=== PATIENT | female | born 1990 | race Caucasian/White ===

== ENCOUNTER 2017-07-02 23:38 | Emergency (ER) | payer SELFPAY ==
[2017-07-03] MEDS ORDERED: LOPERAMIDE HCL 2 MG CAPSULE ONE (01:28)
[2017-07-03] MEDS ORDERED: NA CHLORIDE 0.9% 1,000 ML ONE (01:29)
[2017-07-03] MEDS ORDERED: DICYCLOMINE HCL 10 MG CAP ONE (01:29)
[2017-07-03 02:08] LABS: Absolute Lymphocytes (CBC) 3.3 K/uL (0.7-4.9); Absolute Monocytes 0.9 K/uL (0.1-1.3); Absolute Neutrophil 9.3 K/uL (1.8-8.0); Basophils % 0.4 % (0-1.3); Eosinophils % 1.2 % (0-4.4); Hematocrit 40.7 % (36.0-45.0); Lymphocytes % 24.2 % (15.3-44.8); MCH 28.7 pg (27.0-35.0); MCV 88.1 fL (80-100); MPV 9.5 fL (7.6-11.3); Monocytes % 6.7 % (3.3-12.3); RBC Red Blood Cell Count 4.62 M/uL (3.86-4.86)
[2017-07-03 02:11] LABS: Bicarbonate 27 mEq/L (21-31); Glucose Level 112 mg/dL (65-120); Lipase 31 U/L (22-51); Potassium 3.8 mEq/L (3.6-5.0); Sodium Level 137 mEq/L (135-145)
[2017-07-03 02:18] LABS: ALT/SGPT 67 IU/L (10-60); AST/SGOT 48 IU/L (10-42); Albumin 4.1 g/dL (3.2-5.5); Alkaline Phosphatase 50 IU/L (42-121); Amylase Level 39 U/L (28-100); BUN Blood Urea Nitrogen 14 mg/dL (6-20); Bilirubin Direct 0.1 mg/dL (0-0.2); Bilirubin Total 0.4 mg/dL (0.3-1.2); Protein, Total 7.6 g/dL (6.0-8.3)
[2017-07-03 02:18] LABS: Urine Blood TRACE (NEG); Urine Glucose NEGATIVE (NEG); Urine Protein NEGATIVE (NEG); Urine Specific Gravity 1.025 (1.005-1.030); Urine pH 6.5 (5.0-7.0)
[2017-07-03 02:19] LABS: Urine Bacteria <20 /HPF (<20); Urine Culture Reflex Order NOT NEEDED; Urine RBC <5 /HPF (NONE SEEN)
--- NOTE | 2017-07-03 03:08 | ER ---
Nurse's Notes [facility] Name: Cande Morgan Age: 27 yrs Sex: Female : 1990 Arrival Date: 07/02/2017 Time: 23:44 Bed 5 Private MD: Diagnosis: Diarrhea, unspecified;hemocult positive gastrointestinal bleeding Presentation: 07/02 23:49 Presenting complaint: Patient states: lower abd pain and diarrhea x 1 hr. Transition of aa1 care: patient was not received from another setting of care. Onset of symptoms was July 02, 2017. Initial Sepsis Screen: Does the patient meet any 2 criteria? No. Patient's initial sepsis screen is negative. Does the patient have a suspected source of infection? Yes: Acute abdominal pain. Care prior to arrival: None. 23:49 Method Of Arrival: Ambulatory aa1 23:49 Acuity: GERARDO 3 aa1 Triage Assessment: 23:49 General: Appears in no apparent distress. comfortable, Behavior is calm, cooperative, aa1 appropriate for age. 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 - Social history:: Smoking status: Patient/guardian denies using tobacco. Screenin/14 03:18 Abuse screen: Denies threats or abuse. Denies injuries from another. Nutritional lp1 screening: No deficits noted. Tuberculosis screening: No symptoms or risk factors identified. Fall Risk None identified. Assessment: 01:43 General: Appears in no apparent distress. comfortable, Behavior is calm, cooperative, lp1 appropriate for age. Pain: Complains of pain in right lower quadrant and left lower quadrant Pain currently is 6 out of 10 on a pain scale. Quality of pain is described as aching. Neuro: Level of Consciousness is awake, alert, obeys commands. Cardiovascular: Patient's skin is warm and dry. Respiratory: Respiratory effort is even, unlabored, Respiratory pattern is regular, symmetrical. GI: Abdomen is non-distended, Bowel sounds present X 4 quads. Abdomen is tender to palpation in right lower quadrant and left lower quadrant. : No signs and/or symptoms were reported regarding the genitourinary system. EENT: No signs and/or symptoms were reported regarding the EENT system. Derm: Skin is pink, warm \T\ dry. Musculoskeletal: Circulation, motion, and sensation intact. 02:45 Reassessment: Patient appears in no apparent distress at this time. Patient and/or lp1 family updated on plan of care and expected duration. Pain level reassessed. Patient is alert, oriented x 3, equal unlabored respirations, skin warm/dry/pink. Vital Signs: 07/02 23:49 BP 159 / 98; Pulse 84; Resp 18; Temp 97.0; Pulse Ox 100% on R/A; Weight 94.35 kg; aa1 Height 5 ft. 1 in. (154.94 cm); Pain 4/10; 07/03 01:42 BP 116 / 79; Pulse 65; Resp 16; Pulse Ox 98% on R/A; lp1 02:45 BP 104 / 54; Pulse 60; Resp 16; Pulse Ox 98% on R/A; lp1 07/02 23:49 Body Mass Index 39.30 (94.35 kg, 154.94 cm) aa1 ED Course: 07/02 23:44 Patient arrived in ED. ds1 23:49 Triage completed. aa1 23:49 Arm band placed on left wrist. Patient placed in waiting room, Patient notified of wait aa1 time. 07/03 01:04 Halina Pacheco, LEELEE is Primary Nurse. lp1 01:07 Fernie Burgos MD is Attending Physician. tw4 01:20 Inserted saline lock: 20 gauge in right antecubital area, using aseptic technique. lp1 Blood collected. 01:20 Urine collected: clean catch specimen, clear. lp1 01:23 Geri Clark FNP-C is PHCP. snw 01:45 Patient has correct armband on for positive identification. Placed in gown. Pulse ox lp1 on. NIBP on. 03:19 No provider procedures requiring assistance completed. IV discontinued, No lp1 redness/swelling at site. Pressure dressing applied. Administered Medications: 01:38 Drug: NS 0.9% 1000 ml Route: IV; Rate: 1 bolus; Site: right antecubital; lp1 03:20 Follow up: IV Status: Completed infusion lp1 01:38 Drug: Imodium A-D 4 mg Route: PO; lp1 03:21 Follow up: Response: No adverse reaction lp1 01:39 Drug: Bentyl 20 mg Route: PO; lp1 03:21 Follow up: Response: No adverse reaction lp1 Point of Care Testing: Guaiac: 01:42 Stool Guaiac: Positive; Stool Hemoccult Control: Pass; lp1 Outcome: 03:08 Discharge ordered by MD. martinez 03:19 Discharged to home ambulatory. lp1 03:19 Condition: good 03:19 Discharge instructions given to patient, Instructed on discharge instructions, follow up and referral plans. medication usage, Demonstrated understanding of instructions, follow-up care, medications, Prescriptions given X 1. 03:20 Patient left the ED. lp1 Signatures: Luz Maria Lagunas RN RN aa1 Geri Clark, GRID MAKER-C GRID MAKER-Csnw Sandra Guzman ds1 Halina Pacheco RN RN lp1 Fernie Burgos MD MD tw4
--- NOTE | 2017-07-03 03:09 | EDPHYS ---
Physician Documentation [facility] Name: Cande Morgan Age: 27 yrs Sex: Female : 1990 Arrival Date: 07/02/2017 Time: 23:44 Bed 5 Private MD: ED Physician Fernie Burgos HPI: 07/03 01:54 This 27 yrs old Female presents to ER via Ambulatory with complaints of snw Diarrhea, Abdominal Pain. 01:54 The patient presents to the emergency department with diarrhea, abdominal pain. Onset: snw The symptoms/episode began/occurred suddenly, today. Possible causes: unknown. The symptoms are aggravated by nothing. Associated signs and symptoms: Pertinent positives: abdominal pain, GI bleeding. Severity of symptoms: At their worst the symptoms were moderate. The patient has not experienced similar symptoms in the past. The patient has not recently seen a physician. no meds, no allergies. 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 - Social history:: Smoking status: Patient/guardian denies using tobacco. ROS: 07/03 01:54 Constitutional: Negative for fever, chills, and weight loss, Eyes: Negative for injury, snw pain, redness, and discharge, ENT: Negative for injury, pain, and discharge, Neck: Negative for injury, pain, and swelling, Cardiovascular: Negative for chest pain, palpitations, and edema, Respiratory: Negative for shortness of breath, cough, wheezing, and pleuritic chest pain, Back: Negative for injury and pain, : Negative for injury, bleeding, discharge, and swelling, MS/Extremity: Negative for injury and deformity, Skin: Negative for injury, rash, and discoloration, Neuro: Negative for headache, weakness, numbness, tingling, and seizure. Abdomen/GI: Positive for abdominal pain, nausea, black/tarry stool, of the right lower quadrant and left lower quadrant. Exam: 01:53 Head/Face: Normocephalic, atraumatic. Eyes: Pupils equal round and reactive to light, snw extra-ocular motions intact. Lids and lashes normal. Conjunctiva and sclera are non-icteric and not injected. Cornea within normal limits. Periorbital areas with no swelling, redness, or edema. ENT: Nares patent. No nasal discharge, no septal abnormalities noted. Tympanic membranes are normal and external auditory canals are clear. Oropharynx with no redness, swelling, or masses, exudates, or evidence of obstruction, uvula midline. Mucous membranes moist. Neck: Trachea midline, no thyromegaly or masses palpated, and no cervical lymphadenopathy. Supple, full range of motion without nuchal rigidity, or vertebral point tenderness. No Meningismus. Chest/axilla: Normal chest wall appearance and motion. Nontender with no deformity. No lesions are appreciated. Cardiovascular: Regular rate and rhythm with a normal S1 and S2. No gallops, murmurs, or rubs. Normal PMI, no JVD. No pulse deficits. Respiratory: Lungs have equal breath sounds bilaterally, clear to auscultation and percussion. No rales, rhonchi or wheezes noted. No increased work of breathing, no retractions or nasal flaring. Back: No spinal tenderness. No costovertebral tenderness. Full range of motion. Skin: Warm, dry with normal turgor. Normal color with no rashes, no lesions, and no evidence of cellulitis. MS/ Extremity: Pulses equal, no cyanosis. Neurovascular intact. Full, normal range of motion. Neuro: Awake and alert, GCS 15, oriented to person, place, time, and situation. Cranial nerves II-XII grossly intact. Motor strength 5/5 in all extremities. Sensory grossly intact. Cerebellar exam normal. Normal gait. Psych: Awake, alert, with orientation to person, place and time. Behavior, mood, and affect are within normal limits. 01:53 Constitutional: The patient appears alert, awake, uncomfortable. 01:53 Abdomen/GI: Inspection: abdomen appears normal, Bowel sounds: normal, Palpation: nontender, in all quadrants, Rectal exam: rectal tone normal, Stool: guaiac positive, the exam is chaperoned by the nurse. Vital Signs: 07/02 23:49 BP 159 / 98; Pulse 84; Resp 18; Temp 97.0; Pulse Ox 100% on R/A; Weight 94.35 kg; aa1 Height 5 ft. 1 in. (154.94 cm); Pain 05/30; 07/03 01:42 BP 116 / 79; Pulse 65; Resp 16; Pulse Ox 98% on R/A; lp1 02:45 BP 104 / 54; Pulse 60; Resp 16; Pulse Ox 98% on R/A; lp1 07/02 23:49 Body Mass Index 39.30 (94.35 kg, 154.94 cm) aa1 MDM: 01:07 Patient medically screened. tw 03:09 Data reviewed: vital signs, nurses notes. Data interpreted: Pulse oximetry: on room air snw is 98 %. Interpretation: normal. Counseling: I had a detailed discussion with the patient and/or guardian regarding: the historical points, exam findings, and any diagnostic results supporting the discharge/admit diagnosis, lab results, the need for outpatient follow up, to return to the emergency department if symptoms worsen or persist or if there are any questions or concerns that arise at home. Special discussion: Based on the patient's Hx, exam, and Dx evaluation, there is no indication for emergent surgery or inpatient Tx. It is understood by the patient/guardian that if the Sx's persist or worsen they need to return immediately for re-evaluation. Based on the history and exam findings, there is no indication for further emergent testing or inpatient evaluation. I discussed with the patient/guardian the need to see the vehicle return associate for further evaluation of the symptoms. I discussed with the patient/guardian the need to see the primary care provider for further evaluation of the symptoms. 07/03 01:13 Order name: Amylase, Serum; Complete Time: 02:45 07/03 01:13 Order name: Basic Metabolic Panel; Complete Time: 02:45 07/03 01:13 Order name: CBC with Diff; Complete Time: 02:10 07/03 01:13 Order name: Creatinine for Radiology; Complete Time: 02:16 07/03 01:13 Order name: Hepatic Function; Complete Time: 02:45 07/03 01:13 Order name: Lipase; Complete Time: 02:45 07/03 01:13 Order name: Urine Test (obtain specimen); Complete Time: 01:45 07/03 01:13 Order name: Urine Microscopic Only; Complete Time: 02:45 07/03 01:13 Order name: IV Saline Lock; Complete Time: 01:45 07/03 01:35 Order name: Urine Dipstick--Ancillary (enter results); Complete Time: 02:45 07/03 01:35 Order name: Urine --Ancillary (enter results); Complete Time: 02:45 07/03 01:13 Order name: Labs collected and sent; Complete Time: 01:45 07/03 01:13 Order name: Urine Dipstick-Ancillary (obtain specimen); Complete Time: 01:46 tw4 Administered Medications: 01:38 Drug: NS 0.9% 1000 ml Route: IV; Rate: 1 bolus; Site: right antecubital; lp1 03:20 Follow up: IV Status: Completed infusion lp1 01:38 Drug: Imodium A-D 4 mg Route: PO; lp1 03:21 Follow up: Response: No adverse reaction lp1 01:39 Drug: Bentyl 20 mg Route: PO; lp1 03:21 Follow up: Response: No adverse reaction lp1 Point of Care Testing: Guaiac: 01:42 Stool Guaiac: Positive; Stool Hemoccult Control: Pass; lp1 Disposition: 05:46 Co-signature as Attending Physician, Fernie Burgos MD I agree with the assessment and 4 plan of care. Disposition: 07/03/17 03:08 Discharged to Home. Impression: Diarrhea, unspecified, hemocult positive gastrointestinal bleeding. - Condition is Stable. - Discharge Instructions: Abdominal Pain, Adult, Food Choices to Help Relieve Diarrhea, Adult, Diarrhea, Rehydration, Adult. - Prescriptions for Zofran 4 mg Oral Tablet - take 1 tablet by ORAL route every 12 hours As needed; 6 tablet. - Work release form, Medication Reconciliation Form, Thank You Letter, Antibiotic Education, Prescription Opioid Use form. - Follow up: Private Physician; When: 1 - 2 days; Reason: Recheck today's complaints, Continuance of care, Re-evaluation by your physician. Follow up: Emergency Department; When: As needed; Reason: Worsening of condition. Signatures: Dispatcher [facility] Luz Maria Mcduffie, RN RN aa1 Grei Clark, GENERAL MAINTENANCE TECHNICIAN-C GENERAL MAINTENANCE TECHNICIAN-CsnHalina Eller, RN RN lp1 Fernie Burgos MD MD tw4 Corrections: (The following items were deleted from the chart) 03:20 03:08 07/03/2017 03:08 Discharged to Home. Impression: Diarrhea, unspecified; hemocult lp1 positive gastrointestinal bleeding. Condition is Stable. Forms are Medication Reconciliation Form, Thank You Letter, Antibiotic Education, Prescription Opioid Use. Follow up: Private Physician; When: 1 - 2 days; Reason: Recheck today's complaints, Continuance of care, Re-evaluation by your physician. Follow up: Emergency Department; When: As needed; Reason: Worsening of condition. snw
== END 2017-07-03 03:20 | disposition home or self-care (01) ==
LOC: ER 23:38
DX: K92.2 Gastrointestinal hemorrhage, unspecified (principal)
CPT/HCPCS: 36415; 80048; 80076; 81003; 81015; 81025; 82150; 83690; 85025; 96360; 96361; 99284; J7030

== ENCOUNTER 2018-03-10 09:15 | Emergency (ER) | payer SELFPAY ==
[2018-03-10] MEDS ORDERED: KETOROLAC 30 MG/ML INJ ONE ×2 (09:57→10:10)
[2018-03-10 10:08] LABS: Urine Blood TRACE (NEG); Urine Glucose NEGATIVE (NEG); Urine Protein NEGATIVE (NEG); Urine Specific Gravity 1.025 (1.005-1.030)
--- NOTE | 2018-03-10 11:24 | EDPHYS ---
Physician Documentation [facility] Name: Cande Morgan Age: 28 yrs Sex: Female : 1990 Arrival Date: 03/10/2018 Time: 09:18 Bed 20 Private MD: None, None ED Physician Bartolome Moeller HPI: 03/10 10:00 This 28 yrs old Female presents to ER via Ambulatory with complaints of Left pm1 Shoulder Pain. 10:00 The patient or guardian complains of pain, that is acute. left shoulder. Context: The pm1 problem was sustained at home, resulted from an unknown reason, The patient experiences decreased range of motion, when attempts to raise arm, The patient reports no obvious deformity. Onset: The symptoms/episode began/occurred 3 day(s) ago. Modifying factors: the symptoms are alleviated by nothing. The symptoms are aggravated by rotation of arm, Raising left arm. Associated signs and symptoms: Pertinent negatives: abdominal pain, chest pain, diaphoresis, dyspnea, neck pain, Numbness in left arm shortness of breath, tingling, Weakness in left arm. Severity of symptoms: in the emergency department the symptoms are actually worse. Treatment prior to arrival includes: no previous treatment. The patient has not experienced similar symptoms in the past. The patient has not recently seen a physician. 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 - Ebola Screening: : No symptoms or risks identified at this time. - Social history:: Smoking status: Patient/guardian denies using tobacco. ROS: 10:00 Constitutional: Negative for fever, chills, and weight loss, Eyes: Negative for injury, pm1 pain, redness, and discharge, ENT: Negative for injury, pain, and discharge, Neck: Negative for injury, pain, and swelling, Cardiovascular: Negative for chest pain, palpitations, and edema, Respiratory: Negative for shortness of breath, cough, wheezing, and pleuritic chest pain, Abdomen/GI: Negative for abdominal pain, nausea, vomiting, diarrhea, and constipation, Back: Negative for injury and pain, : Negative for injury, bleeding, discharge, and swelling. 10:00 Skin: Negative for injury, rash, and discoloration, Neuro: Negative for headache, weakness, numbness, tingling, and seizure. 10:00 MS/extremity: Positive for pain, of the left scapular area and left shoulder. Exam: 10:00 Constitutional: This is a well developed, well nourished patient who is awake, alert, pm1 and in no acute distress. Head/Face: Normocephalic, atraumatic. Eyes: Pupils equal round and reactive to light, extra-ocular motions intact. Lids and lashes normal. Conjunctiva and sclera are non-icteric and not injected. Cornea within normal limits. Periorbital areas with no swelling, redness, or edema. ENT: Nares patent. No nasal discharge, no septal abnormalities noted. Tympanic membranes are normal and external auditory canals are clear. Oropharynx with no redness, swelling, or masses, exudates, or evidence of obstruction, uvula midline. Mucous membranes moist. Neck: Trachea midline, no thyromegaly or masses palpated, and no cervical lymphadenopathy. Supple, full range of motion without nuchal rigidity, or vertebral point tenderness. No Meningismus. Chest/axilla: Normal chest wall appearance and motion. Nontender with no deformity. No lesions are appreciated. Cardiovascular: Regular rate and rhythm with a normal S1 and S2. No gallops, murmurs, or rubs. Normal PMI, no JVD. No pulse deficits. Respiratory: Lungs have equal breath sounds bilaterally, clear to auscultation and percussion. No rales, rhonchi or wheezes noted. No increased work of breathing, no retractions or nasal flaring. Abdomen/GI: Soft, non-tender, with normal bowel sounds. No distension or tympany. No guarding or rebound. No evidence of tenderness throughout. 10:00 Skin: Warm, dry with normal turgor. Normal color with no rashes, no lesions, and no evidence of cellulitis. 10:00 Back: normal spinal alignment noted, muscle spasm, is appreciated in the left trapezius, left scapular area and left subscapular area. 10:00 Musculoskeletal/extremity: Extremities: grossly normal except: Pain to left trapezius muscle with raising and rotating left arm. 10:00 Neuro: Orientation: is normal, Motor: is normal, Sensation: is normal, no obvious gross deficits, Gait: is steady, at a normal pace, without difficulty. Vital Signs: 09:21 BP 109 / 74; Pulse 91; Resp 18 S; Temp 97.0(O); Pulse Ox 98% on R/A; Weight 92.99 kg aa5 (R); Height 5 ft. 1 in. (154.94 cm) (R); Pain 5/10; 11:08 BP 126 / 71; Pulse 66; Resp 16; Temp 97.2; Pulse Ox 97% on R/A; mh5 09:21 Body Mass Index 38.73 (92.99 kg, 154.94 cm) aa5 MDM: 09:20 Patient medically screened. [facility] 11:22 Data reviewed: vital signs. Data interpreted: Pulse oximetry: on room air is 97 %. pm1 Interpretation: normal. Counseling: I had a detailed discussion with the patient and/or guardian regarding: the historical points, exam findings, and any diagnostic results supporting the discharge/admit diagnosis, radiology results, the need for outpatient follow up, to return to the emergency department if symptoms worsen or persist or if there are any questions or concerns that arise at home. 03/10 10:02 Order name: Urine Dipstick--Ancillary (enter results) 03/10 10:02 Order name: Urine --Ancillary (enter results) 03/10 10:08 Order name: Urine --Ancillary; Complete Time: 10:37 EDMS 03/10 10:08 Order name: Urine Dipstick-Ancillary; Complete Time: 10:37 EDMS 03/10 10:21 Order name: Shoulder Left (2 View) XRAY pm1 03/10 09:25 Order name: Urine Dipstick-Ancillary (obtain specimen); Complete Time: 09:59 pm1 03/10 09:25 Order name: Urine Test (obtain specimen); Complete Time: 09:59 pm1 Administered Medications: 10:06 Drug: TORadol 60 mg Route: IM; Site: left gluteus; em 10:47 Follow up: Response: No adverse reaction; Pain is decreased em Disposition: 03/10/18 11:23 Discharged to Home. Impression: Muscle spasm of back, Pain in left shoulder. - Condition is Stable. - Discharge Instructions: Muscle Cramps and Spasms, Musculoskeletal Pain, Shoulder Pain. - Prescriptions for Naprosyn 500 mg Oral Tablet - take 1 tablet by ORAL route 2 times per day As needed take with food; 30 tablet. Cyclobenzaprine 10 mg Oral Tablet - take 1 tablet by ORAL route every 8 hours As needed; 30 tablet. - Medication Reconciliation Form, Thank You Letter, Antibiotic Education, Prescription Opioid Use form. - Follow up: Emergency Department; When: As needed; Reason: Worsening of condition. Follow up: Private Physician; When: 2 - 3 days; Reason: Recheck today's complaints, Continuance of care, Re-evaluation by your physician. - Problem is new. - Symptoms have improved. Addendum: 03/12/2018 07:43 Co-signature as Attending Physician, Bartolome Moeller MD I agree with the assessment and c dejesus plan of care. Signatures: Dispatcher [employer] Bartolome Osborn MD MD cha Munoz, Edgar, MANAGER ROUTE MANAGER ROUTE em Malissa Christine, RN RN aa5 Osmar Faulkner, NENA POWER TRANSFORMER REPAIRER pm1 Corrections: (The following items were deleted from the chart) 03/10 11:39 11:23 03/10/2018 11:23 Discharged to Home. Impression: Muscle spasm of back; Pain in em left shoulder. Condition is Stable. Forms are Medication Reconciliation Form, Thank You Letter, Antibiotic Education, Prescription Opioid Use. Follow up: Emergency Department; When: As needed; Reason: Worsening of condition. Follow up: Private Physician; When: 2 - 3 days; Reason: Recheck today's complaints, Continuance of care, Re-evaluation by your physician. Problem is new. Symptoms have improved. pm1
--- NOTE | 2018-03-10 11:24 | ER ---
Nurse's Notes [facility] Name: Cande Morgan Age: 28 yrs Sex: Female : 1990 Arrival Date: 03/10/2018 Time: 09:18 Bed 20 Private MD: None, None Diagnosis: Muscle spasm of back;Pain in left shoulder Presentation: 03/10 09:20 Presenting complaint: Patient states: left scapular pain that radiates to left shoulder aa5 that began 2 days ago. Pt denies known injury. 09:20 Transition of care: patient was not received from another setting of care. Onset of aa5 symptoms was February 2018. Risk Assessment: Do you want to hurt yourself or someone else? Patient reports no desire to harm self or others. Initial Sepsis Screen: Does the patient meet any 2 criteria? No. Patient's initial sepsis screen is negative. Does the patient have a suspected source of infection? No. Patient's initial sepsis screen is negative. Care prior to arrival: None. 09:20 Method Of Arrival: Ambulatory aa5 09:20 Acuity: GERARDO 4 aa5 KNUCKLER: 09:21 LMP 02/11/2018 aa5 Historical: - Allergies: 09:21 Erythromycin; aa5 - PMHx: 09:21 None; aa5 - PSHx: 09:21 None; aa5 - Immunization history:: Adult Immunizations up to date. - Ebola Screening: : No symptoms or risks identified at this time. - Social history:: Smoking status: Patient/guardian denies using tobacco. Screenin:38 Abuse screen: Denies threats or abuse. Nutritional screening: No deficits noted. em Tuberculosis screening: No symptoms or risk factors identified. Fall Risk None identified. Assessment: 09:38 General: Appears in no apparent distress. comfortable, Behavior is calm, cooperative. em Pain: Complains of pain in left scapular area Pain currently is 5 out of 10 on a pain scale. Neuro: Level of Consciousness is awake, alert, obeys commands, Oriented to person, place, time, situation. Cardiovascular: Patient's skin is warm and dry. Respiratory: Airway is patent Respiratory effort is even, unlabored, Respiratory pattern is regular, symmetrical. GI: Abdomen is round. : No signs and/or symptoms were reported regarding the genitourinary system. EENT: No signs and/or symptoms were reported regarding the EENT system. Derm: Skin is intact, Skin is pink, warm \T\ dry. Reports itching. Musculoskeletal: Range of motion: intact in all extremities. 09:38 Reassessment: I agree with assessment completed by Edward Rios LVN . aa5 10:46 Reassessment: Patient appears in no apparent distress at this time. Patient and/or em family updated on plan of care and expected duration. Pain level reassessed. Patient is alert, oriented x 3, equal unlabored respirations, skin warm/dry/pink. rates pain 3/10, pending x-ray results Patient states feeling better. 11:38 Reassessment: Patient appears in no apparent distress at this time. Patient and/or em family updated on plan of care and expected duration. Pain level reassessed. Patient is alert, oriented x 3, equal unlabored respirations, skin warm/dry/pink. Vital Signs: 09:21 BP 109 / 74; Pulse 91; Resp 18 S; Temp 97.0(O); Pulse Ox 98% on R/A; Weight 92.99 kg aa5 (R); Height 5 ft. 1 in. (154.94 cm) (R); Pain 5/10; 11:08 BP 126 / 71; Pulse 66; Resp 16; Temp 97.2; Pulse Ox 97% on R/A; mh5 09:21 Body Mass Index 38.73 (92.99 kg, 154.94 cm) aa5 ED Course: 09:18 Patient arrived in ED. mr 09:19 None, None is Private Physician. mr 09:19 Osmar Faulkner, NENA is PHCP. pm1 09:19 Bartolome Moeller MD is Attending Physician. pm1 09:20 Arm band placed on Patient placed in an exam room, on a stretcher. aa5 09:22 Edward Rios LVN is Primary Nurse. em 09:29 Triage completed. aa5 09:38 Patient has correct armband on for positive identification. Bed in low position. Call em light in reach. 10:31 No provider procedures requiring assistance completed. aa5 11:03 Urine --Ancillary (enter results) Sent. em 11:03 Urine Dipstick--Ancillary (enter results) Sent. em 11:38 Patient did not have IV access during this emergency room visit. em Administered Medications: 10:06 Drug: TORadol 60 mg Route: IM; Site: left gluteus; em 10:47 Follow up: Response: No adverse reaction; Pain is decreased em Outcome: 11:23 Discharge ordered by MD. pm1 11:38 Discharged to home ambulatory. em 11:38 Condition: good 11:38 Discharge instructions given to patient, Instructed on discharge instructions, follow up and referral plans. medication usage, Demonstrated understanding of instructions, follow-up care, medications, Prescriptions given X 2. 11:39 Patient left the ED. em Signatures: Freida Price, Edward, PHOTO STUDIO ASSISTANT PHOTO STUDIO ASSISTANT em Malissa Christine RN RN aa5 Osmar Faulkner NP FERRYBOAT OPERATOR CABLE pm1 Angeles Spicer [facility] Corrections: (The following items were deleted from the chart) 10:30 09:38 GI: Abdomen is flat, em aa5
--- NOTE | 2018-03-10 11:47 | RAD REPORT ---
EXAM DESCRIPTION: RAD - Shoulder Left 2 View - 03/10/2018 10:37 am CLINICAL HISTORY: Left shoulder pain FINDINGS: No fracture or dislocation is seen. No bone or joint abnormality is noted
== END 2018-03-10 11:39 | disposition home or self-care (01) ==
LOC: ER 09:15
DX: M25.512 Pain in left shoulder (principal); M62.830 Muscle spasm of back; Z88.3 Allergy status to other anti-infective agents
CPT/HCPCS: 81003; 81025

== ENCOUNTER 2019-09-20 14:15 | Emergency (ER) | payer SELFPAY ==
[2019-09-20 16:14] LABS: Absolute Lymphocytes (CBC) 3.9 K/uL (0.7-4.9); Basophils % 0.7 % (0-1.3); Hematocrit 30.3 % (36.0-45.0); Lymphocytes % 36.3 % (15.3-44.8); MPV 8.3 fL (7.6-11.3); RBC Red Blood Cell Count 3.66 M/uL (3.86-4.86)
--- NOTE | 2019-09-20 16:34 | RAD REPORT ---
EXAM DESCRIPTION: RAD - Chest Single View - 09/20/2019 4:16 pm CLINICAL HISTORY: DYSPNEA COMPARISON: None TECHNIQUE: AP portable chest image was obtained 09/20/2019 4:16 pm . FINDINGS: Lungs are clear. Heart and vasculature are normal. No measurable pleural effusion and no p neumothorax. No acute bony abnormality seen. No acute aortic findings suspected. IMPRESSION: No acute cardiopulmonary process.
[2019-09-20 16:46] LABS: BUN Blood Urea Nitrogen 9 mg/dL (7-18); Bicarbonate 25 mmol/L (21-32); Glucose Level 91 mg/dL (74-106); Potassium 3.9 mmol/L (3.5-5.1); Sodium Level 139 mmol/L (136-145)
[2019-09-20] MEDS ORDERED: NA CHLORIDE 0.9% 1,000 ML ONE (17:00)
[2019-09-20] MEDS ORDERED: KETOROLAC 30 MG/ML INJ ONE (17:00)
[2019-09-20 17:19] LABS: Urine Blood 2+ (NEG); Urine Glucose NEGATIVE (NEG); Urine Protein NEGATIVE (NEG); Urine Specific Gravity 1.025 (1.005-1.030)
[2019-09-20 17:28] LABS: Urine Bacteria 20-50 /HPF (<20); Urine Culture Reflex Order REFLEXED
--- NOTE | 2019-09-20 17:47 | ER ---
Nurse's Notes [facility] Name: Cande Morgan Age: 29 yrs Sex: Female : 1990 Arrival Date: 09/20/2019 Time: 14:18 Bed 14 Private MD: Diagnosis: Headache;Dizziness and giddiness Presentation: 09/19 14:30 Chief complaint: Patient states: SOB started today. Slight chest heaviness. Headache ll1 intermittently for 1 month. Currently seeing [facility] for uterine bleeding. Coronavirus screen: Client denies travel out of the [place] in the last 14 days. Client presents with at least one sign or symptom that may indicate coronavirus-19. Standard/surgical mask placed on the client. SOB only. Ebola Screen: Patient denies travel to an Ebola-affected area in the 21 days before illness onset. Initial Sepsis Screen: Does the patient meet any 2 criteria? No. Patient's initial sepsis screen is negative. Risk Assessment: Do you want to hurt yourself or someone else? Patient reports no desire to harm self or others. Onset of symptoms was August 20, 2019. 14:30 Method Of Arrival: Ambulatory ll1 14:30 Acuity: GERARDO 3 ll1 17:05 Initial Sepsis Screen: Does the patient have a suspected source of infection? No. ah Patient's initial sepsis screen is negative. Triage Assessment: 17:06 Respiratory: Onset: The symptoms/episode began/occurred today, the patient has mild ah shortness of breath. Historical: - Allergies: 14:30 Erythromycin; ll1 - PMHx: 14:30 Asthma; ll1 - PSHx: 14:30 None; ll1 - Immunization history:: Flu vaccine is not up to date. - Social history:: Smoking status: Patient denies any tobacco usage or history of. Patient/guardian denies using alcohol, street drugs, tobacco products. Screenin:05 Abuse screen: Denies threats or abuse. Nutritional screening: No deficits noted. Tuberculosis screening: No symptoms or risk factors identified. Fall Risk None identified. Assessment: 17:02 General: Appears uncomfortable, Behavior is calm, cooperative, appropriate for age. Pain: Complains of pain in occipital area. Neuro: Level of Consciousness is awake, alert, obeys commands, Oriented to person, place, time, situation, Appropriate for age. Neuro: Reports headache. Cardiovascular: Heart tones S1 S2 present Capillary refill < 3 seconds Patient's skin is warm and dry. Pulses are palpable in right radial artery and left radial artery Rhythm is sinus rhythm. Respiratory: Airway is patent Respiratory effort is even, unlabored, Respiratory pattern is regular, symmetrical. Derm: Skin is intact, is healthy with good turgor, Skin is dry. 18:01 Reassessment: Pt states that medication and fluids have helped. Discharge instructions ah given to pt. Voiced understanding. Vital Signs: 14:30 BP 141 / 98; Pulse 82; Resp 17; Temp 97.8; Pulse Ox 100% ; Pain 6/10; ll1 16:14 BP 122 / 89 LA Supine (auto/lg); Pulse 74; Pulse Ox 100% on R/A; jp3 16:16 BP 136 / 97 LA Sitting (auto/lg); Pulse 85; Pulse Ox 100% on R/A; jp3 16:18 BP 132 / 92 LA Standing (auto/lg); Pulse 88; Pulse Ox 100% on R/A; jp3 17:45 BP 105 / 68; Pulse 65; Resp 25; Pulse Ox 100% ; ah ED Course: 14:18 Patient arrived in ED. mr 14:30 Arm band placed on Patient notified of wait time. ll1 14:33 Triage completed. ll1 15:10 [facility]C [facility] kb 15:10 Bartolome Moeller MD is Attending Physician. kb 15:55 Natalie Norman, RN is Primary Nurse. 15:55 Urine collected: clean catch specimen, clear, santiago colored. jp3 16:00 Initial lab(s) drawn, by ak, sent to lab. Inserted saline lock: 20 gauge in right jp3 antecubital area, using aseptic technique. Blood collected. Patient maintains SpO2 saturation greater than 95% on room air. 16:05 X-ray(s) taken. jp3 16:10 Bed in low position. Call light in reach. Side rails up X 1. Warm blanket given. Verbal jp3 reassurance given. threat monitoring analyst on. Pulse ox on. NIBP on. 16:12 EKG done, by ED staff, reviewed by Shazia SU. jp3 16:16 Chest Single View XRAY In Process Unspecified. EDMS 18:02 No provider procedures requiring assistance completed. IV discontinued, intact, bleeding controlled, No redness/swelling at site. Pressure dressing applied. Administered Medications: 17:01 Drug: NS 0.9% 1000 ml Route: IV; Rate: 1000 ml; Site: right antecubital; 18:03 Follow up: Response: No adverse reaction; IV Status: Completed infusion 17:01 Drug: TORadol - Ketorolac 15 mg Route: IVP; Site: right antecubital; 18:03 Follow up: Response: No adverse reaction Outcome: 17:46 Discharge ordered by . misbah 18:02 Discharged to home ambulatory. 18:02 Condition: good 18:02 Discharge instructions given to patient, Instructed on discharge instructions, follow up and referral plans. Demonstrated understanding of instructions, follow-up care. 18:03 Patient left the ED. Signatures: Dispatcher [employer] EDCO Shazia Silva, GEORGES DA SILVA-Ama FloodaFreida mr RojasLaith jp3 Natalie Norman, RN RN Javed Patton RN RN ll1
--- NOTE | 2019-09-20 17:47 | EDPHYS ---
Physician Documentation [facility] Name: Cande Morgan Age: 29 yrs Sex: Female : 1990 Arrival Date: 09/20/2019 Time: 14:18 Bed 14 Private MD: RONI Physician Bartolome Moeller HPI: 09/19 17:41 This 29 yrs old Female presents to ER via Ambulatory with complaints of kb Shortness Of Breath, Headache. 17:41 The patient has shortness of breath at rest. Onset: The symptoms/episode began/occurred kb 2 week(s) ago. Duration: The symptoms are intermittent, with no pattern. The patient's shortness of breath has no apparent modifying factors. Associated signs and symptoms: Pertinent positives: dizziness, Pertinent negatives: chest pain, non-productive cough, productive cough, diaphoresis, fever, hemoptysis, loss of consciousness, nausea, numbness in extremities, visual changes, vomiting. Severity of symptoms: At their worst the symptoms were moderate in the emergency department the symptoms are unchanged. The patient has not experienced similar symptoms in the past. The patient has been recently seen by a physician: [facility]. Pt reports headaches and dizziness when changing positions for 2 weeks, shortness of breath started today. Reports shortness of breath is intermittent. States she is being treated for vaginal bleeding that had been going on for 1.5 months, but now resolved. . Historical: - Allergies: 14:30 Erythromycin; ll1 - PMHx: 14:30 Asthma; ll1 - PSHx: 14:30 None; ll1 - Immunization history:: Flu vaccine is not up to date. - Social history:: Smoking status: Patient denies any tobacco usage or history of. Patient/guardian denies using alcohol, street drugs, tobacco products. ROS: 17:41 Constitutional: Negative for fever, chills, and weight loss, Cardiovascular: Negative kb for chest pain, palpitations, and edema, Abdomen/GI: Negative for abdominal pain, nausea, vomiting, diarrhea, and constipation, Back: Negative for injury and pain, : Negative for injury, bleeding, discharge, and swelling, MS/Extremity: Negative for injury and deformity, Skin: Negative for injury, rash, and discoloration. 17:41 Respiratory: Positive for shortness of breath, Negative for cough, dyspnea on exertion, hemoptysis, orthopnea, pleurisy, sputum production, wheezing. 17:41 Neuro: Positive for dizziness, headache. Exam: 17:00 Constitutional: This is a well developed, well nourished patient who is awake, alert, kb and in no acute distress. Head/Face: Normocephalic, atraumatic. Eyes: Pupils equal round and reactive to light, extra-ocular motions intact. Lids and lashes normal. Conjunctiva and sclera are non-icteric and not injected. Cornea within normal limits. Periorbital areas with no swelling, redness, or edema. Chest/axilla: Normal chest wall appearance and motion. Nontender with no deformity. No lesions are appreciated. Cardiovascular: Regular rate and rhythm with a normal S1 and S2. No gallops, murmurs, or rubs. Normal PMI, no JVD. No pulse deficits. Respiratory: Lungs have equal breath sounds bilaterally, clear to auscultation and percussion. No rales, rhonchi or wheezes noted. No increased work of breathing, no retractions or nasal flaring. Abdomen/GI: Soft, non-tender, with normal bowel sounds. No distension or tympany. No guarding or rebound. No evidence of tenderness throughout. Skin: Warm, dry with normal turgor. Normal color with no rashes, no lesions, and no evidence of cellulitis. MS/ Extremity: Pulses equal, no cyanosis. Neurovascular intact. Full, normal range of motion. Neuro: Awake and alert, GCS 15, oriented to person, place, time, and situation. Cranial nerves II-XII grossly intact. Motor strength 5/5 in all extremities. Sensory grossly intact. Cerebellar exam normal. Normal gait. 17:00 ECG was reviewed by the Attending Physician. Vital Signs: 14:30 BP 141 / 98; Pulse 82; Resp 17; Temp 97.8; Pulse Ox 100% ; Pain 6/10; ll1 16:14 BP 122 / 89 LA Supine (auto/lg); Pulse 74; Pulse Ox 100% on R/A; jp3 16:16 BP 136 / 97 LA Sitting (auto/lg); Pulse 85; Pulse Ox 100% on R/A; jp3 16:18 BP 132 / 92 LA Standing (auto/lg); Pulse 88; Pulse Ox 100% on R/A; jp3 17:45 BP 105 / 68; Pulse 65; Resp 25; Pulse Ox 100% ; ah MDM: 15:41 Patient medically screened. kb 17:43 Data reviewed: vital signs, nurses notes. Data interpreted: Pulse oximetry: on room air kb is 100 %. Interpretation: normal. Counseling: I had a detailed discussion with the patient and/or guardian regarding: the historical points, exam findings, and any diagnostic results supporting the discharge/admit diagnosis, lab results, radiology results, the need for outpatient follow up, a family practitioner, to return to the emergency department if symptoms worsen or persist or if there are any questions or concerns that arise at home. ED course: Shortness of breath had resolved prior to exam. Pt has had no shortness of breath since arrival. Headache improved after treatment. 09/19 15:50 Order name: CBC with Diff kb 09/19 15:50 Order name: Basic Metabolic Panel; Complete Time: 16:59 kb 09/19 16:13 Order name: Urine Dipstick--Ancillary (enter results); Complete Time: 17:22 eb 09/19 16:13 Order name: Urine --Ancillary (enter results); Complete Time: 17:22 eb 09/19 16:59 Order name: Urine Microscopic Only; Complete Time: 17:32 kb 09/19 17:29 Order name: Urine Culture EDVA 09/19 15:50 Order name: EKG; Complete Time: 15:51 kb 09/19 15:50 Order name: EKG - Nurse/Tech; Complete Time: 16:26 kb 09/19 15:50 Order name: Urine Test (obtain specimen); Complete Time: 16:25 kb 09/19 15:50 Order name: Urine Dipstick-Ancillary (obtain specimen); Complete Time: 16:25 kb 09/19 15:50 Order name: Orthostatics; Complete Time: 16:26 kb 09/19 15:50 Order name: Chest Single View XRAY; Complete Time: 16:36 kb 09/19 15:50 Order name: IV Start; Complete Time: 16:25 kb EC:00 Rate is 77 beats/min. Rhythm is regular. Left axis deviation noted. MT interval is kb normal at 170 msec. QRS interval is normal at 76 msec. QT interval is normal at 394 msec. Administered Medications: 17:01 Drug: NS 0.9% 1000 ml Route: IV; Rate: 1000 ml; Site: right antecubital; 18:03 Follow up: Response: No adverse reaction; IV Status: Completed infusion 17:01 Drug: TORadol - Ketorolac 15 mg Route: IVP; Site: right antecubital; 18:03 Follow up: Response: No adverse reaction Disposition: 09/20 08:02 Co-signature as Attending Physician, Bartolome Moeller MD I agree with the assessment and [facility] plan of care. Disposition: 09/20/19 17:46 Discharged to Home. Impression: Headache, Dizziness and giddiness. - Condition is Stable. - Discharge Instructions: General Headache Without Cause, [id number], Dizziness, [id number]. - Medication Reconciliation Form, Thank You Letter, Antibiotic Education, Prescription Opioid Use form. - Follow up: Emergency Department; When: As needed; Reason: Worsening of condition. Follow up: Private Physician; When: 2 - 3 days; Reason: Recheck today's complaints. Signatures: Dispatcher [employer] Shazia Sandoval, AVINASH-C AVINASH-Bartolome Fallon MD MD cha Harris, Amy, RN RN Javed De La Cruz RN RN ll1 Corrections: (The following items were deleted from the chart) 09/19 18:03 17:46 09/20/2019 17:46 Discharged to Home. Impression: Headache; Dizziness and ah giddiness. Condition is Stable. Forms are Medication Reconciliation Form, Thank You Letter, Antibiotic Education, Prescription Opioid Use. Follow up: Emergency Department; When: As needed; Reason: Worsening of condition. Follow up: Private Physician; When: 2 - 3 days; Reason: Recheck today's complaints. kb
[2019-09-20 18:28] VITALS: TEMP 97.8; O2SAT 100
[2019-09-20 18:32] VITALS: BP 132/92
== END 2019-09-20 18:03 | disposition home or self-care (01) ==
LOC: ER 14:15
DX: R51 Headache (principal); Z88.1 Allergy status to other antibiotic agents
CPT/HCPCS: 36415; 71045; 80048; 81003; 81015; 81025; 85025; 87086; 87088; 93005; 96361; 96374; 99285; J7030

== ENCOUNTER 2020-06-26 14:44 | Emergency (ER) | payer BC, SELFPAY ==
--- NOTE | 2020-06-26 16:02 | RAD REPORT ---
EXAM DESCRIPTION: RAD - Chest Single View - 06/26/2020 3:55 pm CLINICAL HISTORY: CHEST PAIN Chest pain. COMPARISON: Chest Single View dated 09/20/2019 FINDINGS: Portable technique limits examination quality. The lungs are grossly clear. The heart is normal in size. No displaced fractures. IMPRESSION: No acute intrathoracic process suspected.
[2020-06-26 16:25] LABS: Absolute Lymphocytes (CBC) 3.6 K/uL (0.7-4.9); Basophils % 0.5 % (0-1.3); Hematocrit 37.3 % (36.0-45.0); Lymphocytes % 35.2 % (15.3-44.8); MPV 8.8 fL (7.6-11.3); RBC Red Blood Cell Count 4.67 M/uL (3.86-4.86)
[2020-06-26 16:34] LABS: Barbiturates NEGATIVE (NEGATIVE); Benzodiazepines NEGATIVE (NEGATIVE); Cocaine NEGATIVE (NEGATIVE); METHAMPHETAM NEGATIVE (NEGATIVE); Methadone NEGATIVE (NEGATIVE); Opiates NEGATIVE (NEGATIVE); Phencyclidine NEGATIVE (NEGATIVE); THC Cannibis NEGATIVE (NEGATIVE)
[2020-06-26 16:37] LABS: Protime INR 1.09
[2020-06-26 16:47] LABS: ALT/SGPT 57 U/L (12-78); Albumin 3.5 g/dL (3.4-5.0); Alkaline Phosphatase 61 U/L (45-117); BUN Blood Urea Nitrogen 17 mg/dL (7-18); Bicarbonate 29 mmol/L (21-32); Bilirubin Direct < 0.1 mg/dL (0-0.2); Bilirubin Total 0.5 mg/dL (0.2-1.0); Glucose Level 107 mg/dL (74-106); NT PRO-BNP 8 pg/mL (<125); Sodium Level 137 mmol/L (136-145); Troponin (Emerg Dept Use Only) < 0.02 ng/mL (0.0-0.045)
[2020-06-26 16:52] LABS: AST/SGOT 38 U/L (15-37); Magnesium 2.2 mg/dL (1.8-2.4); Potassium 4.1 mmol/L (3.5-5.1)
--- NOTE | 2020-06-26 17:32 | EDPHYS ---
Physician Documentation [facility] Name: Cande Morgan Age: 30 yrs Sex: Female : 1990 Arrival Date: 06/26/2020 Time: 14:46 Bed 28 Private MD: Bartolome Kramer HPI: 06/26 15:02 This 30 yrs old Female presents to ER via Ambulatory with complaints of Chest jmm Pain, Shortness Of Breath. 15:02 The patient or guardian reports chest pain that is located primarily in the substernal jmm area. The pain radiates to the left scapula. Associated signs and symptoms: Pertinent positives: shortness of breath, Pertinent negatives:. The chest pain is described as aching. Duration: The patient or guardian reports multiple episodes, that are intermittent. Modifying factors: The symptoms are alleviated by nothing. the symptoms are aggravated by nothing. The patient has experienced similar episodes in the past. 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 - Social history:: Smoking status: Patient denies any tobacco usage or history of. ROS: 15:02 Constitutional: Negative for fever, chills, and weight loss. jmm 15:02 Cardiovascular: Positive for chest pain. 15:02 Respiratory: Positive for shortness of breath. 15:02 All other systems are negative. Exam: 15:02 Constitutional: This is a well developed, well nourished patient who is awake, alert, jmm and in no acute distress. Head/Face: atraumatic. Eyes: EOMI, no conjunctival erythema appreciated ENT: Moist Mucus Membranes Neck: Trachea midline, Supple Chest/axilla: Normal chest wall appearance and motion. 15:02 Respiratory: Normal respirations, no respiratory distress appreciated Abdomen/GI: Non distended, soft Back: Normal ROM Skin: General appearance color normal MS/ Extremity: Moves all extremities, no obvious deformities appreciated, no edema noted to the lower extremities Neuro: Awake and alert, normal gait Psych: Behavior is normal, Mood is normal, Patient is cooperative and pleasant 15:02 Cardiovascular: Rate: normal, Rhythm: regular, Pulses: no pulse deficits are appreciated. 15:02 ECG was reviewed by the Attending Physician. Vital Signs: 14:51 BP 126 / 91; Pulse 77; Resp 24; Temp 98.9(O); Pulse Ox 99% on R/A; Weight 101.6 kg; sv Height 5 ft. 1 in. (154.94 cm); Pain 7/10; 16:00 BP 126 / 89; Pulse 71; Resp 18; Pulse Ox 99% on R/A; kg 17:50 BP 112 / 81; Pulse 63; Resp 18; Pulse Ox 100% on R/A; kg 14:51 Body Mass Index 42.32 (101.60 kg, 154.94 cm) sv MDM: 15:02 Patient medically screened. [facility] 16:07 Data reviewed: vital signs, nurses notes. [facility] 17:30 Counseling: I had a detailed discussion with the patient and/or guardian regarding: the [facility] historical points, exam findings, and any diagnostic results supporting the discharge/admit diagnosis, lab results, radiology results, the need for outpatient follow up, to return to the emergency department if symptoms worsen or persist or if there are any questions or concerns that arise at home. ED course: Patient is alert and non toxic in appearance in the ED. patient is advised to follow up with pcp. patient is otherwise given strict return precautions. patient understood and agrees with the plan of care. . 06/26 15:19 Order name: Basic Metabolic Panel; Complete Time: 16:54 [facility] 06/26 15:19 Order name: CBC with Diff; Complete Time: 16:42 [facility] 06/26 15:19 Order name: LFT's; Complete Time: 16:55 [facility] 06/26 15:19 Order name: Magnesium; Complete Time: 16:55 [facility] 06/26 15:19 Order name: NT PRO-BNP; Complete Time: 16:55 [facility] 06/26 15:19 Order name: PT-INR; Complete Time: 16:42 [facility] 06/26 15:19 Order name: Troponin (emerg Dept Use Only); Complete Time: 16:55 [facility] 06/26 15:19 Order name: XRAY Chest (1 view); Complete Time: 16:08 [facility] 06/26 15:19 Order name: EKG; Complete Time: 15:21 [facility] 06/26 15:19 Order name: Cardiac monitoring [facility] 06/26 15:19 Order name: D-Dimer; Complete Time: 16:42 [facility] 06/26 15:19 Order name: Urine Drug Screen; Complete Time: 16:35 [facility] 06/26 17:06 Order name: SARS-COV-2 RT PCR; Complete Time: 17:08 [facility] 06/26 15:19 Order name: EKG - Nurse/Tech; Complete Time: 15:42 [facility] 06/26 15:19 Order name: IV Saline Lock [facility] 06/26 15:19 Order name: Labs collected and sent [facility] 06/26 15:19 Order name: O2 Per Protocol; Complete Time: 15:42 [facility] 06/26 15:19 Order name: O2 Sat Monitoring; Complete Time: 15:42 [facility] 06/26 15:19 Order name: Urine Dipstick-Ancillary (obtain specimen) [facility] EC:02 Rate is 65 beats/min. Rhythm is regular. QRS Moro is Normal. ID interval is normal. QRS jmm interval is normal. QT interval is normal. No Q waves. T waves are Normal. No ST changes noted. Reviewed by me. Administered Medications: No medications were administered Disposition: 06/26/20 17:31 Discharged to Home. Impression: Chest pain, unspecified. - Condition is Stable. - Discharge Instructions: Nonspecific Chest Pain. - Prescriptions for Medrol (Andrew) 4 mg Oral Tablets, Dose Pack - take 1 tablet by ORAL route as directed - follow package instructions; 1 packet. orphenadrine citrate 100 mg Oral Tablet Sustained Release - take 1 tablet by ORAL route 2 times per day As needed; 20 tablet. - Medication Reconciliation Form, Thank You Letter, Antibiotic Education, Prescription Opioid Use form. - Follow up: Private Physician; When: 2 - 3 days; Reason: Recheck today's complaints, Continuance of care, Re-evaluation by your physician. Addendum: 06/29/2020 09:30 Co-signature as Attending Physician, Bartolome Moeller MD I agree with the assessment and c dejesus plan of care. Signatures: Dispatcher [employer] Nikki De Jesus RN RN sv Anderson, Corey, MD MD cha Mickail, Joel, PA PA jmm Graham, Kristen kg Corrections: (The following items were deleted from the chart) 06/26 16:26 15:53 CORONAVIRUS+MR.LAB.BRZ ordered. [facility] EDMS 18:06 17:31 06/26/2020 17:31 Discharged to Home. Impression: Chest pain, unspecified. kg Condition is Stable. Forms are Medication Reconciliation Form, Thank You Letter, Antibiotic Education, Prescription Opioid Use. Follow up: Private Physician; When: 2 - 3 days; Reason: Recheck today's complaints, Continuance of care, Re-evaluation by your physician. ricardo
--- NOTE | 2020-06-26 17:32 | ER ---
Nurse's Notes [facility] Name: Cande Morgan Age: 30 yrs Sex: Female : 1990 Arrival Date: 06/26/2020 Time: 14:46 Bed 28 Private MD: Diagnosis: Chest pain, unspecified Presentation: 06/26 14:50 Chief complaint: Patient states: chest pain and SOB started today. Coronavirus screen: sv Client denies travel out of the [place] in the last 14 days. At this time, the client does not indicate any symptoms associated with coronavirus-19. Ebola Screen: No symptoms or risks identified at this time. Risk Assessment: Do you want to hurt yourself or someone else? Patient reports no desire to harm self or others. Onset of symptoms was June 26, 2020. 14:50 Method Of Arrival: Ambulatory sv 14:50 Acuity: GERARDO 3 sv 14:51 Initial Sepsis Screen: Does the patient meet any 2 criteria? No. Patient's initial sv sepsis screen is negative. Does the patient have a suspected source of infection? No. Patient's initial sepsis screen is negative. Triage Assessment: 14:53 General: Appears in no apparent distress. comfortable, Behavior is calm, cooperative, sv appropriate for age. Pain: Complains of pain in chest. Neuro: Level of Consciousness is awake, alert, obeys commands, Gait is steady. Respiratory: Respiratory effort is even, unlabored. 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 - Social history:: Smoking status: Patient denies any tobacco usage or history of. Screenin:07 Abuse screen: Denies threats or abuse. Nutritional screening: No deficits noted. kg Tuberculosis screening: No symptoms or risk factors identified. Fall Risk None identified. No fall in past 12 months (0 pts). No secondary diagnosis (0 pts). No IV (0 pts). Ambulatory Aid- None/Bed Rest/Nurse Assist (0 pts). Gait- Normal/Bed Rest/Wheelchair (0 pts) Mental Status- Oriented to own ability (0 pts). Total Hernandez Fall Scale indicates No Risk (0-24 pts). Assessment: 15:05 Also complains of nausea. General: Appears in no apparent distress. Behavior is calm, kg cooperative, appropriate for age, quiet. Pain: Complains of pain in anterior aspect of left upper chest and left breast Pain radiates to left scapular area and left subscapular area Pain currently is 4 out of 10 on a pain scale. level that patient reports is acceptable is 3 out of 10 on a pain scale. Quality of pain is described as burning, aching, Pain began 4 hours ago. Is continuous. Neuro: No deficits noted. Cardiovascular: No deficits noted. Heart tones S1 S2 Capillary refill < 3 seconds. Respiratory: No deficits noted. Reports shortness of breath at rest on exertion Airway is patent Breath sounds are clear bilaterally. GI: No deficits noted. Abdomen is round obese, Bowel sounds present X 4 quads. Reports nausea. : No deficits noted. EENT: No deficits noted. Derm: No deficits noted. Musculoskeletal: No deficits noted. 17:13 Also complains of Pt called out stating, "I feel like theres icy hot on my left side of kg chest". Wili RUSS aware. Vital Signs: 14:51 BP 126 / 91; Pulse 77; Resp 24; Temp 98.9(O); Pulse Ox 99% on R/A; Weight 101.6 kg; sv Height 5 ft. 1 in. (154.94 cm); Pain 7/10; 16:00 BP 126 / 89; Pulse 71; Resp 18; Pulse Ox 99% on R/A; kg 17:50 BP 112 / 81; Pulse 63; Resp 18; Pulse Ox 100% on R/A; kg 14:51 Body Mass Index 42.32 (101.60 kg, 154.94 cm) sv ED Course: 14:46 Patient arrived in ED. ds1 14:48 Wili Chaudhari PA is PHCP. [facility] 14:48 Bartolome Moeller MD is Attending Physician. [facility] 14:51 Triage completed. sv 14:51 Arm band placed on. sv 15:00 Cheryl Zamudio is Primary Nurse. kg 15:09 Patient has correct armband on for positive identification. Allergy band placed. Placed kg in gown. Bed in low position. Call light in reach. Side rails up X2. cafeteria monitor on. Pulse ox on. NIBP on. 15:10 Patient maintains SpO2 saturation greater than 95% on room air. kg 15:42 EKG done, by ED staff, reviewed by Wili RUSS. Missed attempt(s): 20 gauge in vg1 right antecubital area. 15:55 XRAY Chest (1 view) In Process Unspecified. EDMS 17:52 No provider procedures requiring assistance completed. IV discontinued, intact, kg bleeding controlled, No redness/swelling at site. Pressure dressing applied. Administered Medications: No medications were administered Outcome: 17:31 Discharge ordered by . ricardo 17:52 Discharged to home kg 17:52 Discharged to home ambulatory. 17:52 Condition: good 17:52 Condition: good 17:52 Discharge instructions given to patient, Instructed on discharge instructions, follow up and referral plans. Demonstrated understanding of instructions, follow-up care, medications, Prescriptions given X 2. 18:06 Patient left the ED. kg Signatures: Dispatcher [employer] EDMS Nikki Casillas, RN RN Wili Vences PA PA jmm Sanford, Demi ds1 Jalyn Urena RN RN vg1 Cheryl Zamudio kg
[2020-06-26 18:12] VITALS: TEMP 98.9
[2020-06-26 18:15] VITALS: BP 112/81; O2SAT 100
--- NOTE | 2020-06-27 10:38 | EKG ---
Test Date: 2020-06-26 Test Time: 15:30:13 Relocation Counselor: WENDY MEASUREMENT RESULTS: Intervals: Rate: 65 PA: 176 QRSD: 82 QT: 404 QTc: 420 [place]: P: 27 PA: 176 QRS: -5 T: 22 INTERPRETIVE STATEMENTS: Normal sinus rhythm Minimal voltage criteria for LVH, may be normal variant Cannot rule out Anterior infarct, age undetermined Abnormal ECG Compared to ECG 09/20/2019 16:12:00 Myocardial infarct finding now present Electronically Signed On 06-27-20 10:36:36 CDT by Daniel Holman
== END 2020-06-26 18:06 | disposition home or self-care (01) ==
LOC: ER 14:44
DX: R07.9 Chest pain, unspecified (principal); Z20.822 Contact with and (suspected) exposure to COVID-19; Z88.3 Allergy status to other anti-infective agents
CPT/HCPCS: 93005; 85025; 80048; 36415; 83735; 85610; 85379; 80076; 80307 ×8; 84484; 83880; 71045; 99285; U0003